=== PATIENT | male | born 1935 | race Caucasian/White ===

== ENCOUNTER 2020-06-27 15:09 | Inpatient (IN) | payer OTHER ==
[2020-06-27 15:25] VITALS: BMI 32.8
[2020-06-27 16:06] LABS: BASO % 0.6 % (0-2.0); EOS % 1.2 % (0-4.5); HEMATOCRIT 43.9 % (35.4-49); HEMOGLOBIN 15.1 GM/dL (11.7-16.9); LYMPH % 8.9 % (8-40); MCH 30.8 pg (25.7-33.7); MCHC 34.3 g/dl (32.0-35.9); MEAN CELL VOLUME 89.7 fl (80-96); MEAN PLT VOLUME 8.5 fl (7.5-11.1); MONO % 11.1 % (3.8-10.2); NEUT % 78.2 % (42.8-82.8); PLATELET COUNT 391 K/MM3 (134-434); RBC 4.89 M/mm3 (4.00-5.60); RDW 14.2 % (11.9-15.9); WHITE BLOOD COUNT 9.1 K/mm3 (4.0-10.0)
[2020-06-27] MEDS ORDERED: DEXAMETHASONE SOD PHOSPHATE 4 MG/1 ML VIAL IVPUSH ONE (16:10)
[2020-06-27] MEDS ORDERED: DEXAMETHASONE SOD PHOSPHATE 4 MG/1 ML VIAL ONE (16:22)
[2020-06-27 16:29] LABS: INR 1.49 (0.83-1.09); PROTHROMBIN TIME (PATIENT) 17.8 SEC (9.7-13.0)
[2020-06-27 16:29] LABS: CHLORIDE 102 mmol/L (98-107); POTASSIUM 4.2 mmol/L (3.5-5.1); SODIUM 139 mmol/L (136-145)
[2020-06-27 16:31] LABS: CALCIUM 9.5 mg/dL (8.5-10.1)
[2020-06-27 16:31] LABS: ACTIVATED PTT 33.9 SECONDS (25.2-36.5); URINE APPEARANCE CLOUDY; URINE BILIRUBIN 1+ (NEGATIVE); URINE COLOR DK YELLOW; URINE GLUCOSE (UA) NEGATIVE (NEGATIVE); URINE KETONE NEGATIVE (NEGATIVE); URINE LEUK ESTERASE NEGATIVE (NEGATIVE); URINE NITRITE NEGATIVE (NEGATIVE); URINE PROTEIN TRACE (NEGATIVE)
[2020-06-27 16:32] LABS: ANION GAP 8 MMOL/L (8-16); BLOOD UREA NITROGEN 25.6 mg/dL (7-18); CO2 29 mmol/L (21-32); GLUCOSE,RANDOM 103 mg/dL (74-106); MAGNESIUM 2.4 mg/dL (1.8-2.4)
[2020-06-27 16:35] LABS: CREATININE 1.2 mg/dL (0.55-1.3); SGOT/AST 121 U/L (15-37); SGPT/ALT 148 U/L (13-61)
[2020-06-27 16:37] LABS: BILIRUBIN,TOTAL 1.7 mg/dL (0.2-1); TOT PROT 7.5 g/dl (6.4-8.2)
[2020-06-27 16:38] LABS: ALK PHOS 652 U/L (45-117)
[2020-06-27 16:39] LABS: LDH 435 U/L (87-246)
[2020-06-28] MEDS: RAMIPRIL 5 MG CAPSULE PO SCH (09:38)
[2020-06-28] MEDS: amLODIPine BESYLATE 5 MG TABLET (FP) PO SCH (09:38)
[2020-06-28] MEDS ORDERED: DOCUSATE SODIUM 100 MG CAPSULE (FP) PO PRN (15:06)
[2020-06-28] MEDS ORDERED: REMDESIVIR 200 MG in SODIUM CHLORIDE 210 ML IVPB ONE (20:00)
[2020-06-29] MEDS: amLODIPine BESYLATE 5 MG TABLET (FP) PO SCH (09:38)
[2020-06-29] MEDS: MULTIVITAMINS (DAILY MVI) TABLET (FP) PO SCH (09:38)
[2020-06-29] MEDS: ENOXAPARIN NA (PORCINE) 40 MG/0.4 ML DISP.SYRIN SQ SCH (09:41)
[2020-06-29] MEDS: RAMIPRIL 5 MG CAPSULE PO SCH (09:41)
[2020-06-29] MEDS: DEXAMETHASONE 4 MG TABLET (FP) PO SCH (12:15)
[2020-06-29 16:13] LABS: POTASSIUM 4.4 mmol/L (3.5-5.1)
[2020-06-29 16:15] LABS: CALCIUM 8.9 mg/dL (8.5-10.1)
[2020-06-29 16:16] LABS: ALBUMIN 2.5 g/dl (3.4-5.0); BLOOD UREA NITROGEN 30.6 mg/dL (7-18)
[2020-06-29 16:18] LABS: BILIRUBIN,DIRECT 0.5 mg/dL (0.0-0.2)
[2020-06-29 16:19] LABS: CREATININE 0.9 mg/dL (0.55-1.3)
[2020-06-29 16:20] LABS: BILIRUBIN,TOTAL 0.8 mg/dL (0.2-1); TOT PROT 6.4 g/dl (6.4-8.2)
[2020-06-29] MEDS: REMDESIVIR 100 MG in SODIUM CHLORIDE 230 ML IVPB SCH (20:43)
[2020-06-30 07:55] LABS: BASO % 0.5 % (0-2.0); EOS % 1.1 % (0-4.5); HEMATOCRIT 40.3 % (35.4-49); HEMOGLOBIN 13.8 GM/dL (11.7-16.9); LYMPH % 13.3 % (8-40); MCHC 34.3 g/dl (32.0-35.9); MEAN CELL VOLUME 90.4 fl (80-96); MEAN PLT VOLUME 8.5 fl (7.5-11.1); MONO % 10.8 % (3.8-10.2); NEUT % 74.3 % (42.8-82.8); PLATELET COUNT 343 K/MM3 (134-434); RBC 4.46 M/mm3 (4.00-5.60); RDW 14.4 % (11.9-15.9); WHITE BLOOD COUNT 8.2 K/mm3 (4.0-10.0)
[2020-06-30 08:00] LABS: POTASSIUM 4.7 mmol/L (3.5-5.1)
[2020-06-30 08:08] LABS: BLOOD UREA NITROGEN 26.4 mg/dL (7-18)
[2020-06-30 08:09] LABS: ALBUMIN 2.4 g/dl (3.4-5.0); CALCIUM 8.9 mg/dL (8.5-10.1)
[2020-06-30 08:11] LABS: BILIRUBIN,DIRECT 0.3 mg/dL (0.0-0.2); CREATININE 0.8 mg/dL (0.55-1.3); PHOSPHOROUS 3.6 mg/dL (2.5-4.9)
[2020-06-30 08:13] LABS: BILIRUBIN,TOTAL 1.3 mg/dL (0.2-1); TOT PROT 5.9 g/dl (6.4-8.2)
[2020-06-30 08:14] LABS: MAGNESIUM 2.6 mg/dL (1.8-2.4)
[2020-06-30] MEDS ORDERED: PT OWN MED DRAWER 7, Y5N ONE (10:48)
[2020-06-30] MEDS: RAMIPRIL 5 MG CAPSULE PO SCH (10:54)
[2020-06-30] MEDS: DEXAMETHASONE 4 MG TABLET (FP) PO SCH (10:54)
[2020-06-30] MEDS: amLODIPine BESYLATE 5 MG TABLET (FP) PO SCH (10:55)
[2020-06-30] MEDS: MULTIVITAMINS (DAILY MVI) TABLET (FP) PO SCH (10:55)
[2020-06-30] MEDS: ENOXAPARIN NA (PORCINE) 40 MG/0.4 ML DISP.SYRIN SQ SCH (10:56)
[2020-06-30] MEDS: REMDESIVIR 100 MG in SODIUM CHLORIDE 230 ML IVPB SCH (19:36)
[2020-07-01] MEDS: ENOXAPARIN NA (PORCINE) 40 MG/0.4 ML DISP.SYRIN SQ SCH (10:13)
[2020-07-01] MEDS: RAMIPRIL 5 MG CAPSULE PO SCH (10:14)
[2020-07-01] MEDS: MULTIVITAMINS (DAILY MVI) TABLET (FP) PO SCH (10:14)
[2020-07-01] MEDS: DEXAMETHASONE 4 MG TABLET (FP) PO SCH (10:14)
[2020-07-01] MEDS: amLODIPine BESYLATE 5 MG TABLET (FP) PO SCH (10:14)
[2020-07-01] MEDS: REMDESIVIR 100 MG in SODIUM CHLORIDE 230 ML IVPB SCH (21:02)
[2020-07-02] MEDS ORDERED: PT OWN MED DRAWER 7, Y5N ONE (09:26)
[2020-07-02] MEDS: DEXAMETHASONE 4 MG TABLET (FP) PO SCH (09:37)
[2020-07-02] MEDS: RAMIPRIL 5 MG CAPSULE PO SCH (09:37)
[2020-07-02] MEDS: MULTIVITAMINS (DAILY MVI) TABLET (FP) PO SCH (09:37)
[2020-07-02] MEDS: ENOXAPARIN NA (PORCINE) 40 MG/0.4 ML DISP.SYRIN SQ SCH (09:37)
[2020-07-02] MEDS: amLODIPine BESYLATE 5 MG TABLET (FP) PO SCH (09:37)
[2020-07-02] MEDS: REMDESIVIR 100 MG in SODIUM CHLORIDE 230 ML IVPB SCH (20:10)
[2020-07-03] MEDS: DEXAMETHASONE 4 MG TABLET (FP) PO SCH (09:39)
[2020-07-03] MEDS: MULTIVITAMINS (DAILY MVI) TABLET (FP) PO SCH (09:39)
[2020-07-03] MEDS: amLODIPine BESYLATE 5 MG TABLET (FP) PO SCH (09:39)
[2020-07-03] MEDS: RAMIPRIL 5 MG CAPSULE PO SCH (09:40)
[2020-07-03] MEDS: ENOXAPARIN NA (PORCINE) 40 MG/0.4 ML DISP.SYRIN SQ SCH (09:40)
[2020-07-04 06:27] VITALS: BP 135/75; TEMP 98.2
[2020-07-04] MEDS: RAMIPRIL 5 MG CAPSULE PO SCH (09:59)
[2020-07-04] MEDS: MULTIVITAMINS (DAILY MVI) TABLET (FP) PO SCH (09:59)
[2020-07-04] MEDS: DEXAMETHASONE 4 MG TABLET (FP) PO SCH (09:59)
[2020-07-04] MEDS: amLODIPine BESYLATE 5 MG TABLET (FP) PO SCH (10:00)
[2020-07-04] MEDS ORDERED: APIXABAN 2.5 MG TABLET PO SCH (10:00)
[2020-07-04 12:11] VITALS: PULSE 107
== END 2020-07-04 14:31 | disposition home or self-care (01) | DRG 177 ==
LOC: JER 15:09 → JERBED 18:14 → J8W 22:54
PROVIDERS: ADMIT Internal Medicine; ATTEND Internal Medicine
PROC: 8E0ZXY6 Isolation (ICD-10-PCS; 2020-06-27)
PROC: XW033E5 Introduction of Remdesivir Anti-infective into Peripheral Vein, Percutaneous Approach, New Technology Group 5 (ICD-10-PCS; principal; 2020-06-28)
DX: U07.1 COVID-19 (principal); J12.82 Pneumonia due to coronavirus disease 2019; J96.01 Acute respiratory failure with hypoxia; I10 Essential (primary) hypertension; E78.00 Pure hypercholesterolemia, unspecified; I25.10 Atherosclerotic heart disease of native coronary artery without angina pectoris; R00.0 Tachycardia, unspecified; R74.8 Abnormal levels of other serum enzymes; E66.9 Obesity, unspecified; Z68.32 Body mass index [BMI] 32.0-32.9, adult
CPT/HCPCS: 36415; 71045-TC-FY; 80048; 80053; 80076; 81003; 82248; 82550; 82728; 83605; 83615; 83735; 84100; 84484; 85025; 85379; 85610; 85730; 86140; 86769; 87086; 87804; 93005; 93010; 94761; 97116-GP; 97161-GP; 99291; C9399; C9803; U0003